=== PATIENT | male | born 1985 | race African-American/Black ===

== ENCOUNTER 2021-01-25 08:48 | Emergency (ER) | payer SELFPAY ==
[~2021-01-25] VITALS: Ht 190.5 cm; Wt 115.0 kg
[2021-01-25] MEDS ORDERED: KETOROLAC 60MG/2ML VIAL IM ONE (09:15)
[2021-01-25] MEDS ORDERED: MOBI7 MT (09:17)
[2021-01-25 09:23] VITALS: BP 160/100
== END 2021-01-25 09:34 | disposition home or self-care (01) ==
LOC: ER 09:30
DX: M16.12 Unilateral primary osteoarthritis, left hip (principal); R03.0 Elevated blood-pressure reading, without diagnosis of hypertension
CPT/HCPCS: 96372; 99283; J1885

== ENCOUNTER 2021-01-28 22:02 | Emergency (ER) | payer MEDICAID ==
[~2021-01-28] VITALS: Ht 190.5 cm; Wt 157.0 kg
[~2021-01-28 22:02] MED LIST: MOBI7 MT
[2021-01-29] MEDS ORDERED: IBUPROFEN 400MG TABLET PO ONE (00:30)
[2021-01-29] MEDS ORDERED: ACETAMINOPHEN 325MG TABLET PO ONE (00:30)
[2021-01-29] MEDS ORDERED: IBUP-2028 MT (00:31)
[2021-01-29] MEDS ORDERED: ACET-2708 MT (00:31)
[2021-01-29 01:15] VITALS: BP 151/92
== END 2021-01-29 01:33 | disposition home or self-care (01) ==
LOC: ER 22:02
DX: M16.12 Unilateral primary osteoarthritis, left hip (principal); Z88.0 Allergy status to penicillin; Z90.89 Acquired absence of other organs
CPT/HCPCS: 99283

== ENCOUNTER 2024-09-09 23:55 | Emergency (ER) | payer MEDICAID ==
[~2024-09-09] VITALS: Ht 190.5 cm; Wt 167.0 kg
[~2024-09-09 23:55] MED LIST changes: +ACET-2708 MT; +ALBU18HF2 IH; +AMLO10TA80 PO; +FURO-151 MT; +IBUP-2028 MT; +POTA-205 MT
[2024-09-10] VITALS: O2SAT 100
[2024-09-10 00:09] VITALS: BP 110/62; PULSE 94; RESP 18; TEMP 37.1; O2SAT 100
[2024-09-10 02:34] LABS: CLARITY URINE TURBID (CLEAR); COLOR URINE RED (YELLOW); GLUCOSE URINE TRACE (NEGATIVE); KETONES URINE NEGATIVE (NEGATIVE); LEUKOCYTE ESTERASE URINE 2+ (NEGATIVE); NITRITE URINE POSITIVE (NEGATIVE); OCCULT BLOOD URINE 2+ (NEGATIVE); PROTEIN URINE 2+ (NEGATIVE); SPECIFIC GRAVITY URINE 1.018 (1.005-1.030); UROBILINOGEN URINE 0.2 E.U./dL (0.2-1.0)
[2024-09-10] MEDS: CEFTRIAXONE SODIUM 500MG VIAL IM ONE (03:45)
[2024-09-10] MEDS ORDERED: NITR100C MT (03:57)
[2024-09-10 05:01] LABS: RBC URINE TNTC /hpf (0-2)
[2024-09-10 05:07] LABS: BACTERIA URINE TRACE; SQUAMOUS EPITHELIAL CELL URINE NONE SEEN /lpf (RARE/1+)
== END 2024-09-10 04:09 | disposition home or self-care (01) ==
LOC: ER 23:55
DX: N39.0 Urinary tract infection, site not specified (principal); I11.0 Hypertensive heart disease with heart failure; I50.9 Heart failure, unspecified; F12.90 Cannabis use, unspecified, uncomplicated; J45.909 Unspecified asthma, uncomplicated; Z79.1 Long term (current) use of non-steroidal anti-inflammatories (NSAID); Z79.899 Other long term (current) drug therapy; Z88.0 Allergy status to penicillin
CPT/HCPCS: 99283; 81003; 96372; J0696